=== PATIENT | male | born 2000 | race Caucasian/White ===

== ENCOUNTER 2022-03-11 01:23 | Emergency (ER) | payer MEDICAID, SELFPAY ==
[2022-03-11] VITALS (7 sets, daily range): BP systolic 117–141; BP diastolic 76; PULSE 74–94; RESP 15–17; TEMP 37.1; O2SAT 97–99; BMI 16.5
--- NOTE | 2022-03-11 01:35 | EX.ED.VIS.PS ---
HPI HPI - Psych History of Present Illness Chief Complaint: Suicidal Informant: patient Associated Symptoms Associated Symptoms - Psych: Positive for Depressed and Suicidal Thoughts Specific plan (suicidal thought): See below Narrative Narrative: Patient was crying on a curb, called police/dispatch because he was feeling suicidal, they brought him here under pink slip although he was voluntary and wants help. Recently moved here from [place]. States this has been a longstanding issue that is coming to ahead. When asked if he has a suicidal plan, he states whatever hits me first, jumping off of a bridge, running out into traffic, etc. Denies any substance use. Smokes a lot of cigarettes but no recent alcohol. No recent illness. Denies ever had COVID in the past or any symptoms of the right now. [facility] Medical History Anxiety Depression OCD (obsessive compulsive disorder) PTSD (post-traumatic stress disorder) Home Medications mirtazapine 15 mg tablet (Remeron) 15 mg PO QHS 03/11/22 [History Last Taken Unknown] quetiapine 25 mg tablet 25 mg PO QHS 03/11/22 [History Last Taken Unknown] Allergy/AdvReac Type Severity Reaction Status Date / Time peanut Allergy Anaphylaxis Verified 03/11/22 01:34 Surgical History no surgical history Social History Smoking Status: Current every day smoker tobacco type: cigarettes ROS ROS ED Constitutional Constitutional ED: Denies chills or fever(s) Eyes Eyes: Denies change in vision or diplopia ENT ENT ED: Denies rhinorrhea or sore throat Cardiovascular Cardiovascular: Denies chest pain or palpitations Respiratory/Chest Respiratory/Chest: Denies cough or dyspnea Gastrointestinal Gastrointestinal: Denies abdominal pain, diarrhea, nausea or vomiting Genitourinary Genitourinary ED: Denies dysuria or hematuria Musculoskeletal Musculoskeletal: Denies back pain or neck pain Integumentary Denies abscess or rash Neurologic Neurologic: Denies headache(s), paresthesias or weakness Psychiatric Psychiatric: Reports depression, suicidal ideation and suicidal thoughts; Denies homicidal ideation EXAM Physical Exam Const Vital Signs: 03/11/22 01:25 03/11/22 05:51 Temperature 98.7 F Temperature Source Temporal Pulse Rate 94 74 Respiratory Rate 16 15 Blood Pressure 141/76 H Blood Pressure Mean 97 Pulse Ox 97 98 Oxygen Delivery Method Room Air Room Air Positive well nourished and well developed General Appearance ED: well developed and NAD HEENT Reports moist mucous membranes normocephalic and atraumatic Eyes PERRL and EOMs intact bilaterally General Eye ED: Negative for scleral icterus Neck no lymphadenopathy and supple Resp normal respiratory effort and clear to auscultation bilaterally Cardio no murmurs Rate: regular rate Rhythm: regular rhythm GI non-tender and non-distended Auscultation: normoactive bowel sounds Palpation: soft Back/Spine no CVA tenderness and normal ROM Extremity normal to inspection General Extremety ED: Negative for edema General Extremity: Negative for edema Neuro oriented x3, CN's II-XII intact bilaterally, no sensory deficits noted and gait normal Sensorium / Orientation: alert Motor Exam: strength 5/5 throughout Psych mental status grossly normal, thought process normal, cooperative, activity/motor behavior normal and denies homicidal ideation Mood & Affect: depressed Thought Content: suicidality Skin Lesions: no lesions Rashes: no rashes MDM MDM MDM Narrative Medical decision making narrative: Patient states he is feeling anxious. He was given Vistaril for that as well as a nicotine patch since he is a heavy smoker. He is medically cleared. We will have crisis evaluate. Crisis agrees patient should be placed, they actually saw and evaluated him last week and came up with a safety plan but he has decompensated since then. At the time of this dictation, still awaiting an accepting facility. Lab Data Attestation: I reviewed the patient's lab results. Labs: Laboratory Results - last 24 hr 03/11/22 03/11/22 03/11/22 02:00 02:00 02:00 WBC 7.0 RBC 5.71 Hgb 11.6 L Hct 37.9 L MCV 66.4 L MCH 20.3 L MCHC 30.6 L RDW Std Deviation 38.0 RDW Coeff of Rene 17.2 H Plt Count 217 Immature Gran % (Auto) 0.300 Neut % (Auto) 66.6 Lymph % (Auto) 20.3 Cottle % (Auto) 10.4 H Eos % (Auto) 2.0 Baso % (Auto) 0.4 Absolute Neuts (auto) 4.7 Absolute Lymphs (auto) 1.43 Nucleated RBC % 0 Sodium 142 Potassium 3.3 L Chloride 109 H Carbon Dioxide 28.0 Anion Gap 5 BUN 12 Creatinine 0.99 Estim Creat Clear Calc 85.68 Est GFR (MDRD) Af Amer 120 Est GFR (MDRD) Non-Af 99 BUN/Creatinine Ratio 12.1 Glucose 105 Calcium 8.5 Urine Opiates Screen Urine Methadone Screen Ur Barbiturates Screen Ur Phencyclidine Scrn Ur Amphetamines Screen MDMA (Ecstasy) Screen U Benzodiazepines Scrn Urine Cocaine Screen U Cannabinoids Screen Ur Drug Screen Comment Ethyl Alcohol 5.0 03/11/22 02:00 WBC RBC Hgb Hct MCV MCH MCHC RDW Std Deviation RDW Coeff of Rene Plt Count Immature Gran % (Auto) Neut % (Auto) Lymph % (Auto) Cottle % (Auto) Eos % (Auto) Baso % (Auto) Absolute Neuts (auto) Absolute Lymphs (auto) Nucleated RBC % Sodium Potassium Chloride Carbon Dioxide Anion Gap BUN Creatinine Estim Creat Clear Calc Est GFR (MDRD) Af Amer Est GFR (MDRD) Non-Af BUN/Creatinine Ratio Glucose Calcium Urine Opiates Screen NEGATIVE Urine Methadone Screen NEGATIVE Ur Barbiturates Screen NEGATIVE Ur Phencyclidine Scrn NEGATIVE Ur Amphetamines Screen NEGATIVE MDMA (Ecstasy) Screen NEGATIVE U Benzodiazepines Scrn NEGATIVE Urine Cocaine Screen NEGATIVE U Cannabinoids Screen NEGATIVE Ur Drug Screen Comment Ethyl Alcohol Discharge Plan Triage Chief Complaint: Suicidal ED Provider: Jl Mullen Dx/Rx/DC Orders Clinical Impression: Suicidal ideation Prescriptions: No Action quetiapine 25 mg Tablet 25 mg PO QHS mirtazapine [Remeron] 15 mg Tablet 15 mg PO QHS Primary Care Provider: Care Physician,No Primary Referrals: Care Physician,No Primary [Primary Care Provider] - Disposition Disposition: Psychiatric Hospital or Unit
[2022-03-11 02:24] LABS: Anion Gap 5 (5-15); BUN 12 mg/dL (7-18); BUN/Creat Ratio 12.1 RATIO (10-20); Calcium,Total 8.5 mg/dL (8.5-10.1); Chloride 109 mmol/L (98-107); Creatinine, Serum 0.99 mg/dL (0.70-1.30); EST Glomerular Filtration Rate 99 mL/min (>60); Est Glom Filt Rate - Afr Amer 120 mL/min (>60); Estimated Creatinine Clearance 85.68 ml/min; Glucose 105 mg/dL (74-106); Potassium 3.3 mmol/L (3.5-5.1); Sodium Level 142 mmol/L (136-145)
[2022-03-11 02:35] LABS: Amphetamine Urine VISTA NEGATIVE (<1000 ng/mL); Barbiturate Urine VISTA NEGATIVE (< 200 ng/mL); Benzodiazepine Urine VISTA NEGATIVE (< 200 ng/mL); Cocaine Urine VISTA NEGATIVE (< 300 ng/mL); Ecstacy Urine VISTA NEGATIVE (< 500 ng/mL); Methadone Urine VISTA NEGATIVE (< 300 ng/mL); PCP Urine VISTA NEGATIVE (< 25 ng/mL); THC Urine VISTA NEGATIVE (< 50 ng/mL); Vista UDS pH Range 5
[2022-03-11 02:37] LABS: Absolute Lymphocyte Count 1.43 X10^3/uL (0.83-4.51); Absolute Neutrophil Count 4.7 X10^3/uL (2.0-7.7); Basophil# 0.03 X10^3/uL; Basophil% 0.4 % (0-1); Eosinophil# 0.14 X10^3/uL; Hematocrit 37.9 % (40-54); Hemoglobin 11.6 g/dL (13.0-16.5); Lymphocyte # 1.43 X10^3/ul (0.83-4.51); Lymphocyte % 20.3 % (19-41); Mean Corp Hgb Conc 30.6 g/dL (32-36); Mean Corpuscular Hgb 20.3 pg (27.0-32.0); Mean Corpuscular Volume 66.4 fL (80-94); Monocyte# 0.73 X10^3/uL; Monocyte% 10.4 % (0-10); NRBC Flagged by Analyzer 0 % (0-5); Neutrophil # 4.69 X10^3/uL (2.7-7.7); Neutrophil % 66.6 % (47-70); Platelet Count 217 K/mm3 (150-450); RBC Distribution Width CV 17.2 % (11.6-14.6); Red Blood Count 5.71 M/mm3 (4.6-6.2)
--- NOTE | 2022-03-11 08:57 | NURSING ---
CALLED [facility]. NOTHING YET
--- NOTE | 2022-03-11 09:19 | NURSING ---
Spoke with Rachel from crisis, due to pt not having insurance crisis is working on a funding agreement to send to facilities
--- NOTE | 2022-03-11 10:52 | ED.RN ---
Pt accepted at [facility] by Dr Leavitt. Unit [address] Nurse to nurse [phone]
--- NOTE | 2022-03-11 10:52 | NURSING ---
CALLED [facility] TO SET UP TRANSPORT
--- NOTE | 2022-03-11 11:13 | NURSING ---
[facility] C[facility] TO SAUSAGE STUFFER PATIENT IN ABOUT 1 HOUR
== END 2022-03-11 12:16 ==
PROVIDERS: Emergency Provider Emergency Medicine; Visit Provider Emergency Medicine
DX: R45.851 Suicidal ideations (principal); F17.210 Nicotine dependence, cigarettes, uncomplicated; Z79.899 Other long term (current) drug therapy
CPT/HCPCS: 80048; 80307; 82077; 85025; 87811; 99285; A4216